=== PATIENT | female | born 1955 | race Caucasian/White ===

== ENCOUNTER 2017-11-19 01:48 | Observation (INO) | payer BC ==
[2017-11-19] MEDS ORDERED: NORMAL SALINE 1000 ML 1,000 ML IV ONE (02:03)
[2017-11-19 02:08] LABS: ABSOLUTE BASOPHILS # (AUTO) 0.1 10^3/uL (0.0-0.2); ABSOLUTE EOSINOPHILS # (AUTO) 0.2 10^3/uL (0.0-0.6); ABSOLUTE LYMPHOCYTES (AUTO) 1.9 10^3/uL (0.5-4.7); ABSOLUTE MONOCYTES (AUTO) 0.6 10^3/uL (0.1-1.4); ABSOLUTE NEUT (AUTO) 4.7 10^3/uL (1.7-8.2); BASOPHILS % (AUTO) 1.4 % (0-2); EOSINOPHILS % (AUTO) 2.5 % (0-6); HEMATOCRIT 33.3 % (36.0-47.0); HEMOGLOBIN 10.8 g/dL (12.0-15.5); LYMPHOCYTES % (AUTO) 25.5 % (13-45); MEAN CORPUSCULAR HGB CONC 32.4 g/dL (32.0-36.0); MEAN CORPUSCULAR VOLUME 77 fl (80-97); MONOCYTES % (AUTO) 8.4 % (3-13); PLATELET COUNT 275 10^3/uL (150-450); RED BLOOD COUNT 4.32 10^6/uL (3.72-5.28); RED CELL DISTRIBUTION WIDTH 15.2 % (11.5-14.0); SEGMENTED NEUTROPHILS % (AUTO) 62.2 % (42-78); TOTAL CELLS COUNTED % (AUTO) 100 %; WHITE BLOOD COUNT 7.5 10^3/uL (4.0-10.5)
[2017-11-19 02:36] LABS: ALANINE AMINOTRANSFERASE 23 U/L (9-52); ALBUMIN 3.5 g/dL (3.5-5.0); ALKALINE PHOSPHATASE 118 U/L (38-126); ANION GAP 8 (5-19); ASPARTATE AMINO TRANSFERASE 38 U/L (14-36); BILIRUBIN,DIRECT 0.1 mg/dL (0.0-0.4); BILIRUBIN,TOTAL 0.8 mg/dL (0.2-1.3); BLOOD UREA NITROGEN 9 mg/dL (7-20); CALCIUM 8.6 mg/dL (8.4-10.2); CARBON DIOXIDE 28 mmol/L (22-30); CHLORIDE 104 mmol/L (98-107); CREATINE KINASE 35 U/L (30-135); GLUCOSE 165 mg/dL (75-110); LIPASE 688.8 U/L (23-300); POTASSIUM 4.4 mmol/L (3.6-5.0); SODIUM 139.6 mmol/L (137-145); TOTAL PROTEIN 6.2 g/dL (6.3-8.2)
--- NOTE | 2017-11-19 02:37 | RADIOLOGY REPORT (SQ) ---
EXAM DESCRIPTION: CT HEAD WITHOUT COMPLETED DATE/TIME: 11/19/2017 2:22 am REASON FOR STUDY: ams COMPARISON: None. TECHNIQUE: Axial images acquired through the brain without intravenous contrast. Images reviewed wi th bone, brain and subdural windows. Images stored on PACS. All CT scanners at this facility use dose modulation, iterative reconstruction, and/or weight based d osing when appropriate to reduce radiation dose to as low as reasonably achievable (ALARA). [facility]: Dose Right [facility]: CareDose [facility]: Dose Right [facility]: Teradose 4D [facility]: Smart EPS RADIATION DOSE: CT Rad equipment meets quality standard of care and radiation dose reduction techniq ues were employed. CTDIvol: 64.6 mGy. DLP: 1163 mGy-cm. mGy. LIMITATIONS: None. FINDINGS: VENTRICLES: Normal size and contour. CEREBRUM: No mass effect. No hemorrhage. No midline shift. Normal garza/white matter differentiatio n. No evidence for acute territorial infarction. CEREBELLUM: No mass effect. No hemorrhage. No alteration of density. No evidence for acute infarct ion. EXTRAAXIAL SPACES: No fluid collections. ORBITS AND GLOBE: Symmetrical contour of the globes. CALVARIUM: No depressed skull fracture. PARANASAL SINUSES: No air-fluid level. SOFT TISSUES: No hematoma. IMPRESSION: No acute intracranial hemorrhage or acute territorial infarct. EVIDENCE OF ACUTE STROKE: NO. COMMENT: Quality ID # [id number]: Final reports with documentation of one or more dose reduction techniques (e.g., Automated exposure control, adjustment of the mA and/or kV according to patient size, use of iterative reconstruction technique) TECHNICAL DOCUMENTATION: JOB ID: [id number] [place]- All Rights Reserved
[2017-11-19 02:45] LABS: CREATINE KINASE MB 0.28 ng/mL (<4.55); TROPONIN I < 0.012 ng/mL
[2017-11-19 02:49] LABS: INTERNATIONAL RATION (INR) 0.94; PARTIAL THROMBOPLASTIN TIME 29.5 SEC (23.5-35.8); PROTHROMBIN TIME 13.2 SEC (11.4-15.4)
--- NOTE | 2017-11-19 02:53 | RADIOLOGY REPORT (SQ) ---
EXAM DESCRIPTION: CHEST SINGLE VIEW COMPLETED DATE/TIME: 11/19/2017 2:13 am REASON FOR STUDY: vomiting, heart rate 30's COMPARISON: None. EXAM PARAMETERS: NUMBER OF VIEWS: One view. TECHNIQUE: Single frontal radiographic view of the chest acquired. RADIATION DOSE: NA LIMITATIONS: None. FINDINGS: LUNGS AND PLEURA: No consolidation, pneumothorax or pleural effusion. MEDIASTINUM AND HILAR STRUCTURES: No masses. Contour normal. HEART AND VASCULAR STRUCTURES: The heart is enlarged. There is no overt vascular congestion. BONES: No acute findings. HARDWARE: None in the chest. IMPRESSION: Cardiomegaly with no vascular congestion. TECHNICAL DOCUMENTATION: JOB ID: [id number] [place]-64 2010 [employer]- All Rights Reserved
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
--- NOTE | 2017-11-19 05:22 | RADIOLOGY REPORT (SQ) ---
EXAM DESCRIPTION: CT ABD/PELVIS WITH IV ONLY COMPLETED DATE/TIME: 11/19/2017 4:59 am REASON FOR STUDY: nausea, vomiting, diarrhea x1 hour prior to arrival. History of gastric bypass an d tubal ligation. Cholecystectomy. COMPARISON: None. TECHNIQUE: CT scan of the abdomen and pelvis performed using helical scanning technique with dynamic intravenous contrast injection. No oral contrast. Images reviewed with lung, soft tissue, and bone windows. Reconstructed coronal and sagittal MPR images reviewed. Delayed images for evaluation of the urinary system also acquired. All images stored on PACS. All CT scanners at this facility use dose modulation, iterative reconstruction, and/or weight based d osing when appropriate to reduce radiation dose to as low as reasonably achievable (ALARA). [facility]: Dose Right [facility]: CareDose [facility]: Dose Right [facility]: Teradose 4D [facility]: [employer] [facility] CONTRAST TYPE AND DOSE: contrast/concentration: Isovue 370.00 mg/ml; Total Contrast Delivered: 90.0 ml; Total Saline Delivered: 70.0 ml RENAL FUNCTION: Creatinine 0.67 RADIATION DOSE: CT Rad equipment meets quality standard of care and radiation dose reduction techniq ues were employed. CTDIvol: 12.5 - 17.0 mGy. DLP: 1598 mGy-cm.. LIMITATIONS: None. FINDINGS: LOWER CHEST: Mild bibasilar atelectasis. No pleural effusion. LIVER: Normal size. No masses. No dilated ducts. SPLEEN: Normal size. PANCREAS: No significant calcifications. No adjacent inflammation or peripancreatic fluid collections . Pancreatic duct not dilated. GALLBLADDER: Surgically absent. ADRENAL GLANDS: No significant masses or asymmetry. RIGHT KIDNEY AND URETER: No solid masses. No significant calcifications. No hydronephrosis or hyd roureter. LEFT KIDNEY AND URETER: No solid masses. No significant calcifications. No hydronephrosis or hydr oureter. AORTA AND VESSELS: No abdominal aortic aneurysm. RETROPERITONEUM: No retroperitoneal adenopathy, hemorrhage or masses. BOWEL AND PERITONEAL CAVITY: Postsurgical changes are seen at the stomach and small bowel loops. No dilated bowel loops. No free fluid or free air. There is mild increased haziness at the mesenteric root. No pathologically enlarged lymph nodes are identified. APPENDIX: Normal. PELVIS: The urinary bladder is distended. The uterus has a lobulated contour, suggestive fibroid mary nge. No free fluid. ABDOMINAL WALL: Very small fat containing umbilical hernia. BONES: Degenerative changes in the spine. IMPRESSION: 1. Mild increased haziness at the mesenteric root, may be seen with mesenteric pannicul itis. 2. Fibroid uterus. TECHNICAL DOCUMENTATION: JOB ID: [id number] [place]- Quality ID # [id number]: Final reports with documentation of one or more dose reduction techniques (e.g., Au tomated exposure control, adjustment of the mA and/or kV according to patient size, use of iterative reconstruction technique) 2010 [employer]- All Rights Reserved
[2017-11-19] MEDS ORDERED: MAG HYDROX/AL HYDROX/SIMETH SUSP 30 ML UDCUP PO PRN (06:46)
[2017-11-19] MEDS ORDERED: ACETAMINOPHEN 325 MG TABLET PO PRN (06:46)
[2017-11-19] MEDS ORDERED: NORMAL SALINE 1000 ML 1,000 ML IV PRN (06:49)
--- NOTE | 2017-11-19 06:58 | PDOC H&P ---
History of Present Illness Admission Date/PCP: 11/19/17 06:16 ARTIS WEAVER PA-C Patient complains of: Nausea and syncope History of Present Illness: CATALINO STILL is a 62 year old female with a past medical history of depression, diabetes, hypertension, dyslipidemia status post gastric bypass 2 years ago. Patient presents with sudden onset of abdominal pain and nausea without shortness of breath palpitations or chest pain. Suspecting her blood sugar was low she drank orange juice followed by a syncopal episode while standing. She was assisted to the floor by her without sustaining injury. She had 2 further episodes lasting approximately a minute without postictal confusion, limb shaking or incontinence. EMS reports several episodes of retching during which a brief episode of bradycardia in the 30s. Patient denies previous episode, new medications and otherwise feels well and at baseline. In the emergency room her workup is unremarkable with exception to a mild microcytic anemia, mild elevated lipase and a CT abdomen and pelvis showing possible mesenteric panniculitis. She is referred to the hospitalist for evaluation. Past Medical History Cardiac Medical History: Reports: Hyperlipidema, Hypertension Endocrine Medical History: Reports: Diabetes Mellitus Type 2 - NIDDM, Obesity Psychiatric Medical History: Reports: Depression Past Surgical History Past Surgical History: Reports: Cholecystectomy, Gastric Bypass Surgery, Herniorrhaphy, Tubal Ligation Social History Information Source: Patient, Emergency Med Personnel Lives with: Spouse/Significant other Smoking Status: Unknown if Ever Smoked Frequency of Alcohol Use: None Hx Recreational Drug Use: No Drugs: None - Advance Directive Resuscitation Status: Full Code Family History Family History: CAD, CVA, DM, Hyperlipidemia, Hypertension, Malignancy, Other - Non-Hodgkin's lymphoma. denies: Arthritis, Thyroid Disfunction Parental Family History Reviewed: Yes Children Family History Reviewed: Yes Sibling(s) Family History Reviewed.: Yes Medication/Allergy Home Medications: Oxycodone HCl/Acetaminophen [Percocet 5-325 mg Tablet] 1 tab PO Q6HP PRN #25 tablet 10/31/15 Review of Systems Constitutional: PRESENT: fatigue. ABSENT: chills, fever(s), headache(s), weight gain, weight loss Eyes: ABSENT: visual disturbances Ears: ABSENT: hearing changes Cardiovascular: ABSENT: chest pain, dyspnea on exertion, edema, orthropnea, palpitations Respiratory: ABSENT: cough, hemoptysis Gastrointestinal: ABSENT: abdominal pain, constipation, diarrhea, hematemesis, hematochezia, nausea, vomiting Genitourinary: ABSENT: dysuria, hematuria Musculoskeletal: ABSENT: joint swelling Integumentary: ABSENT: rash, wounds Neurological: ABSENT: abnormal gait, abnormal speech, confusion, dizziness, focal weakness, syncope Psychiatric: ABSENT: anxiety, depression, homidical ideation, suicidal ideation Endocrine: ABSENT: cold intolerance, heat intolerance, polydipsia, polyuria Hematologic/Lymphatic: ABSENT: easy bleeding, easy bruising Physical Exam Vital Signs: Temp Pulse Resp BP Pulse Ox 97.5 F 19 126/69 H 94 11/19/17 02:01 11/19/17 06:01 11/19/17 06:01 11/19/17 06:01 General appearance: PRESENT: no acute distress, well-developed, well-nourished Head exam: PRESENT: atraumatic, normocephalic Eye exam: PRESENT: conjunctiva pink, EOMI, PERRLA. ABSENT: scleral icterus Ear exam: PRESENT: normal external ear exam Mouth exam: PRESENT: moist, tongue midline Neck exam: ABSENT: carotid bruit, JVD, lymphadenopathy, thyromegaly Respiratory exam: PRESENT: clear to auscultation nate. ABSENT: rales, rhonchi, wheezes Cardiovascular exam: PRESENT: RRR. ABSENT: diastolic murmur, rubs, systolic murmur Pulses: PRESENT: normal dorsalis pedis pul Vascular exam: PRESENT: normal capillary refill GI/Abdominal exam: PRESENT: normal bowel sounds, soft. ABSENT: distended, guarding, mass, organolmegaly, rebound, tenderness Rectal exam: PRESENT: deferred Extremities exam: PRESENT: full ROM. ABSENT: calf tenderness, clubbing, pedal edema Neurological exam: PRESENT: alert, awake, oriented to person, oriented to place , oriented to time, oriented to situation, CN II-XII grossly intact. ABSENT: motor sensory deficit Psychiatric exam: PRESENT: appropriate affect, normal mood. ABSENT: homicidal ideation, suicidal ideation Skin exam: PRESENT: dry, intact, warm. ABSENT: cyanosis, rash Results Impressions: Chest X-Ray 11/19/17 01:59 IMPRESSION: Cardiomegaly with no vascular congestion. Head CT 11/19/17 02:15 IMPRESSION: No acute intracranial hemorrhage or acute territorial infarct. EVIDENCE OF ACUTE STROKE: NO. Abdomen/Pelvis CT 11/19/17 04:30 IMPRESSION: 1. Mild increased haziness at the mesenteric root, may be seen with mesenteric panniculitis. 2. Fibroid uterus. Assessment & Plan - Diagnosis (1) Syncopal episodes Qualifiers: Syncope type: unspecified Qualified Code(s): R55 - Syncope and collapse Is this a current diagnosis for this admission?: Yes Plan: Unclear cause suspect hypotension. Telemetry monitoring hold Lopressor. Follow -up orthostatic blood pressure evaluation and consider outpatient cardiac monitoring (2) Diabetes Is this a current diagnosis for this admission?: Yes Plan: Episode unlikely secondary to hypoglycemia, follow-up A1c (3) Orthostatic hypotension Is this a current diagnosis for this admission?: Yes Plan: Follow-up orthostatic blood pressures (4) Nausea Is this a current diagnosis for this admission?: Yes Plan: Symptomatic management. - Time Time Spent: 30 to 50 Minutes - Inpatient Certification Medical Necessity: Need Close Monitoring Due to Risk of Patient Decompensation
[2017-11-19 07:04] LABS: ABSOLUTE RETICS # 0.066 10^6/uL (0.028-0.122); RETICULOCYTE COUNT (AUTO) 1.51 % (0.66-2.85)
[2017-11-19 08:54] LABS: IRON(TIBC) 37.5 ug/dL (37-170); MAGNESIUM 1.8 mg/dL (1.6-2.3)
--- NOTE | 2017-11-19 08:54 | EKG REPORT ---
SEVERITY:- BORDERLINE ECG - SINUS RHYTHM BORDERLINE T ABNORMALITIES, DIFFUSE LEADS : Confirmed by: Martin Simeon MD 19-Nov-2017 08:53:18
[2017-11-19 09:11] LABS: CREATINE KINASE MB 1.79 ng/mL (<4.55)
[2017-11-19 09:13] LABS: TROPONIN I < 0.012 ng/mL
[2017-11-19 09:49] LABS: APPEARANCE,URINE CLEAR; BILIRUBIN,URINE NEGATIVE (NEGATIVE); COLOR,URINE YELLOW; GLUCOSE, URINE 50 mg/dL (NEGATIVE); KETONES,URINE NEGATIVE (NEGATIVE); LEUKOCYTE ESTERASE,URINE NEGATIVE (NEGATIVE); NITRITE,URINE NEGATIVE (NEGATIVE); PROTEIN,URINE NEGATIVE (NEGATIVE); URINE SPECIFIC GRAVITY 1.034
[2017-11-19 10:05] LABS: URINE AMPHETAMINES SCREEN NEGATIVE; URINE BARBITURATES SCREEN NEGATIVE; URINE BENZODIAZEPINES SCREEN NEGATIVE; URINE COCAINE SCREEN NEGATIVE; URINE MARIJUANA (THC) SCREEN NEGATIVE; URINE METHADONE SCREEN NEGATIVE; URINE PHENCYCLIDINE SCREEN NEGATIVE
[2017-11-19] MEDS: DOCUSATE SODIUM 100 MG CAPSULE PO SCH (10:36)
--- NOTE | 2017-11-19 15:38 | Progress Note ---
Provider Note Provider Note: Patient admitted this am. Chart and Labs reviewed and discussed with patient and family. They are satisfied with my explanation
[2017-11-19 15:57] LABS: TROPONIN I < 0.012 ng/mL
[2017-11-19] MEDS: HEPARIN SOD (PORCINE) 5,000 UNIT/ML 1 ML SYRINGE SUBCUT SCH ×2 (16:35→22:11)
[2017-11-19 21:20] LABS: CREATINE KINASE MB 1.37 ng/mL (<4.55)
[2017-11-19 21:24] LABS: TROPONIN I < 0.012 ng/mL
[2017-11-20 04:58] LABS: ABSOLUTE EOSINOPHILS # (AUTO) 0.2 10^3/uL (0.0-0.6); ABSOLUTE LYMPHOCYTES (AUTO) 2.7 10^3/uL (0.5-4.7); ABSOLUTE MONOCYTES (AUTO) 0.5 10^3/uL (0.1-1.4); ABSOLUTE NEUT (AUTO) 3.4 10^3/uL (1.7-8.2); BASOPHILS % (AUTO) 0.7 % (0-2); EOSINOPHILS % (AUTO) 2.4 % (0-6); HEMOGLOBIN 10.4 g/dL (12.0-15.5); LYMPHOCYTES % (AUTO) 39.7 % (13-45); MEAN CORPUSCULAR HEMOGLOBIN 25.1 pg (27.0-33.4); MEAN CORPUSCULAR HGB CONC 32.4 g/dL (32.0-36.0); MEAN CORPUSCULAR VOLUME 78 fl (80-97); MONOCYTES % (AUTO) 7.5 % (3-13); PLATELET COUNT 236 10^3/uL (150-450); RED BLOOD COUNT 4.13 10^6/uL (3.72-5.28); RED CELL DISTRIBUTION WIDTH 15.3 % (11.5-14.0); SEGMENTED NEUTROPHILS % (AUTO) 49.7 % (42-78); TOTAL CELLS COUNTED % (AUTO) 100 %; WHITE BLOOD COUNT 6.7 10^3/uL (4.0-10.5)
[2017-11-20 05:26] LABS: ALANINE AMINOTRANSFERASE 31 U/L (9-52); ALBUMIN 3.3 g/dL (3.5-5.0); ALKALINE PHOSPHATASE 119 U/L (38-126); ANION GAP 8 (5-19); ASPARTATE AMINO TRANSFERASE 27 U/L (14-36); BILIRUBIN,DIRECT 0.1 mg/dL (0.0-0.4); BILIRUBIN,TOTAL 1.4 mg/dL (0.2-1.3); BLOOD UREA NITROGEN 4 mg/dL (7-20); CARBON DIOXIDE 30 mmol/L (22-30); CHLORIDE 104 mmol/L (98-107); GLUCOSE 152 mg/dL (75-110); POTASSIUM 4.4 mmol/L (3.6-5.0); SODIUM 142.3 mmol/L (137-145); TOTAL PROTEIN 5.9 g/dL (6.3-8.2)
[2017-11-20] MEDS: HEPARIN SOD (PORCINE) 5,000 UNIT/ML 1 ML SYRINGE SUBCUT SCH ×2 (07:55→13:16)
[2017-11-20] MEDS: DOCUSATE SODIUM 100 MG CAPSULE PO SCH (09:27)
[2017-11-20 12:11] VITALS: BP 170/76
[2017-11-20] MEDS ORDERED: CARVEDILOL 6.25 MG TABLET PO ONE (13:00)
--- NOTE | 2017-11-20 18:01 | PDOC DISCHARGE SUMMARY ---
General - Admit/Disc Date/PCP Admission Date/Primary Care Provider: 11/19/17 06:16 ARTIS WEAVER PA-C Discharge Date: 11/20/17 - Discharge Diagnosis (1) Anemia Is this a current diagnosis for this admission?: Yes (2) Diabetes Is this a current diagnosis for this admission?: Yes (3) Generalized muscle weakness Is this a current diagnosis for this admission?: Yes (4) Orthostatic hypotension Is this a current diagnosis for this admission?: Yes (5) Syncopal episodes Is this a current diagnosis for this admission?: Yes - Additional Information Resuscitation Status: Full Code Discharge Diet: As Tolerated, Cardiac, Diabetic Discharge Activity: Activity As Tolerated Home Medications: Aspirin [Aspirin 81 mg Chewable Tablet] 81 mg PO DAILY 11/19/17 Carvedilol 6.25 mg PO Q12 11/19/17 Escitalopram Oxalate [Lexapro] 20 mg PO DAILY 11/19/17 Glimepiride 1 mg PO DAILY 11/19/17 Metformin HCl [Metformin HCl ER] 1,500 mg PO WSUPPER 11/19/17 Simvastatin 40 mg PO QHS 11/19/17 History of Present Illness History of Present Illness: CATALINO STILL is a 62 year old female admitted with syncope, nausea and vomiting Hospital Course Hospital Course: Patient was admitted with unexplained syncopal episode as well as bradycardia and nausea and vomiting. The etiology of this is not really clear and it is possible that patient was hypoglycemic although the first check of her glucose was close to 200 after drinking some orange juice. She was monitored in hospital overnight with no further episodes of syncope and she remained hemodynamically stable. She was found to have microcytic anemia but no evidence of any acute blood loss. She has been hemodynamically stable with no further interventions been planned at this time she is being discharged home for outpatient follow-up. Physical Exam Vital Signs: Temp Pulse Resp BP Pulse Ox 98.8 F 57 L 16 170/76 H 98 11/20/17 12:59 11/20/17 12:59 11/20/17 12:59 11/20/17 12:59 11/20/17 12:59 Intake & Output 11/19/17 11/20/17 11/21/17 06:59 06:59 06:59 Intake Total 1195 480 Output Total 700 Balance 495 480 Weight 82.5 kg General appearance: PRESENT: no acute distress, well-developed, well-nourished Head exam: PRESENT: atraumatic, normocephalic Eye exam: PRESENT: conjunctiva pink, EOMI, PERRLA. ABSENT: scleral icterus Ear exam: PRESENT: normal external ear exam Mouth exam: PRESENT: moist, tongue midline Neck exam: ABSENT: carotid bruit, JVD, lymphadenopathy, thyromegaly Respiratory exam: PRESENT: clear to auscultation nate. ABSENT: rales, rhonchi, wheezes Cardiovascular exam: PRESENT: RRR. ABSENT: diastolic murmur, rubs, systolic murmur Vascular exam: PRESENT: normal capillary refill GI/Abdominal exam: PRESENT: normal bowel sounds, soft. ABSENT: distended, guarding, mass, organolmegaly, rebound, tenderness Rectal exam: PRESENT: deferred Extremities exam: PRESENT: full ROM. ABSENT: calf tenderness, clubbing, pedal edema Neurological exam: PRESENT: alert, awake, oriented to person, oriented to place , oriented to time, oriented to situation, CN II-XII grossly intact. ABSENT: motor sensory deficit Psychiatric exam: PRESENT: appropriate affect, normal mood. ABSENT: homicidal ideation, suicidal ideation Skin exam: PRESENT: dry, intact, warm. ABSENT: cyanosis, rash Results Laboratory Results: 11/20/17 04:02 11/20/17 04:02 11/20/17 11/20/17 04:02 04:02 WBC 6.7 RBC 4.13 Hgb 10.4 L Hct 32.0 L MCV 78 L MCH 25.1 L MCHC 32.4 RDW 15.3 H Plt Count 236 Seg Neutrophils % 49.7 Lymphocytes % 39.7 Monocytes % 7.5 Eosinophils % 2.4 Basophils % 0.7 Absolute Neutrophils 3.4 Absolute Lymphocytes 2.7 Absolute Monocytes 0.5 Absolute Eosinophils 0.2 Absolute Basophils 0.0 Sodium 142.3 Potassium 4.4 Chloride 104 Carbon Dioxide 30 Anion Gap 8 BUN 4 L Creatinine 0.66 Est GFR ( Amer) > 60 Est GFR (Non-Af Amer) > 60 Glucose 152 H Calcium 9.0 Total Bilirubin 1.4 H AST 27 ALT 31 Alkaline Phosphatase 119 Total Protein 5.9 L Albumin 3.3 L 11/19/17 11/19/17 11/19/17 08:29 08:29 14:41 Creatine Kinase 114 133 CK-MB (CK-2) 1.79 Troponin I < 0.012 11/19/17 11/19/17 11/19/17 14:41 20:40 20:40 Creatine Kinase 137 H CK-MB (CK-2) 1.70 1.37 Troponin I < 0.012 < 0.012 Impressions: Chest X-Ray 11/19/17 01:59 IMPRESSION: Cardiomegaly with no vascular congestion. Head CT 11/19/17 02:15 IMPRESSION: No acute intracranial hemorrhage or acute territorial infarct. EVIDENCE OF ACUTE STROKE: NO. Abdomen/Pelvis CT 11/19/17 04:30 IMPRESSION: 1. Mild increased haziness at the mesenteric root, may be seen with mesenteric panniculitis. 2. Fibroid uterus. Qualifiers PATEINT BEING DISCHARGED WITH ANY OF THE FOLLOWING DIAGNOSIS?: No Plan Discharge Plan: Follow-up with primary care physician is advised and further evaluation of anemia is suggested. Time Spent: Less than 30 Minutes
== END 2017-11-20 13:33 | disposition home or self-care (01) ==
LOC: ER 01:48 → EH 06:16 → 5 12:35
PROVIDERS: ADMIT Internal Medicine; ATTEND Internal Medicine
DX: R55 Syncope and collapse (principal); D50.9 Iron deficiency anemia, unspecified; E11.9 Type 2 diabetes mellitus without complications; M62.81 Muscle weakness (generalized); I95.1 Orthostatic hypotension; R10.9 Unspecified abdominal pain; R11.2 Nausea with vomiting, unspecified; R19.7 Diarrhea, unspecified; Z79.899 Other long term (current) drug therapy; Z79.82 Long term (current) use of aspirin; Z79.84 Long term (current) use of oral hypoglycemic drugs; Z98.84 Bariatric surgery status; Z90.49 Acquired absence of other specified parts of digestive tract; Z98.51 Tubal ligation status; Z82.49 Family history of ischemic heart disease and other diseases of the circulatory system; Z80.7 Family history of other malignant neoplasms of lymphoid, hematopoietic and related tissues; Z98.890 Other specified postprocedural states
CPT/HCPCS: 93005; 99285; 96360; 96361; 36415 ×2; 82553; 82607; 82550; 82728; 82746; 83540; 83550; 83690; 83735; 84443; 85025 ×2; 85652; 85610; 85730; 85045; 80053 ×2; 81001; 84484; 80307; 83036; 71045; 70450; 74177; 93010; G0378 ×3; J1644 ×2; J7030

== ENCOUNTER 2018-08-12 22:55 | Observation (INO) | payer BC, MEDICARE ==
--- NOTE | 2018-08-12 23:19 | ER Document Report ---
ED General - General Stated Complaint: NAUSEA/VOMITING Time Seen by Provider: 08/12/18 23:00 Notes: Patient is a 63-year-old female presents via ambulance. Complaint is initially of diarrhea and high blood sugar. On exam her speech is slightly slurred. She is really unsure of exactly when this started. She said probably sometime tonight. She denies any weakness or numbness anywhere else other than just generalized weakness. She denies recent fevers. She said some nausea. No blood in her stool. She mentions that she start taking some medications today that she had taken while that she is supposed to take every day. When these metformin. She cannot really tell me what the other medications are. She does have back medicines but metformin is not in that bag. She also has multiple antibiotics in this bag which are from several months ago. On exam patient does appear to have bit her tongue. I asked her if she has a history of seizures and possibly had a seizure tonight. She denies previous history of seizures. She is unsure if she may have had a seizure tonight. TRAVEL OUTSIDE OF THE [place] IN LAST 30 DAYS: No - Related Data Allergies/Adverse Reactions: No Known Allergies Allergy (Verified 08/13/18 03:17) Past Medical History - Social History Smoking Status: Unknown if Ever Smoked Frequency of alcohol use: None Drug Abuse: None Family History: CAD, CVA, DM, Hyperlipidemia, Hypertension, Malignancy, Other - Non-Hodgkin's lymphoma. denies: Arthritis, Thyroid Disfunction - Past Medical History Cardiac Medical History: Reports: Hx Hypercholesterolemia, Hx Hypertension Endocrine Medical History: Reports: Hx Diabetes Mellitus Type 2 - NIDDM Renal/ Medical History: Denies: Hx Peritoneal Dialysis Psychiatric Medical History: Reports: Hx Anxiety, Hx Depression Past Surgical History: Reports: Hx Cholecystectomy, Hx Gastric Bypass Surgery, Hx Herniorrhaphy, Hx Tubal Ligation - Immunizations Immunizations up to date: Yes Hx Diphtheria, Pertussis, Tetanus Vaccination: Yes Review of Systems - Review of Systems Notes: My Normal Review Basic REVIEW OF SYSTEMS: CONSTITUTIONAL : Denies fever, chills, or sweats. Denies recent illness. EENT: Denies eye, ear, throat, or mouth pain or symptoms. Denies nasal or sinus congestion. CARDIOVASCULAR: Denies chest pain. RESPIRATORY: Denies cough, cold, or chest congestion. Denies shortness of breath, difficulty breathing, or wheezing. GASTROINTESTINAL: Denies abdominal pain. Nausea. Diarrhea. GENITOURINARY: Denies difficulty urinating, painful urination, burning, frequency, or blood in urine. MUSCULOSKELETAL: Denies neck or back pain or joint pain or swelling. SKIN: Denies rash or skin lesions. HEMATOLOGIC : Denies easy bruising or bleeding. LYMPHATIC: Denies swollen, enlarged glands. NEUROLOGICAL: Possible loss of consciousness. Patient denies any focal weakness or numbness. ALL OTHER SYSTEMS REVIEWED AND NEGATIVE. Physical Exam - Vital signs Vitals: Temp Pulse Resp BP Pulse Ox 97.4 F 70 15 192/99 H 98 08/12/18 22:55 08/12/18 22:55 08/12/18 22:55 08/12/18 22:55 08/12/18 22:55 - Notes Notes: General Appearance: Well nourished, patient is little bit somnolent. Speech is slightly slurred. Vitals: reviewed, See vital signs table. Head: no swelling or tenderness to the head Eyes: PERRL, EOMI, Conjuctiva clear Mouth: Small area of tongue biting. Throat: No tonsillar inflammation, No airway obstruction, No lymphadenopathy Neck: Supple, no neck tenderness Lungs: No wheezing, No rales, No rhonci, No accessory muscle use, good air exchange bilaterally. Heart: Normal rate, Regular rythm, No murmur, no rub Abdomen: Normal BS, soft, No rigidity, No abdominal tenderness, No guarding, no rebound, no abdominal masses, no organomegaly Extremities: strength 5/5 in all extremities, good pulses in all extremities, no swelling or tenderness in the extremities, no edema. Skin: warm, dry, appropriate color, no rash Neuro: She is little bit somnolent. Speech is slightly slurred. Cranial nerves II through XII are otherwise intact. Patient has good strength in all 4 extremities. No evidence of any further focal neurologic deficits other than the slightly slurred speech. Course - Re-evaluation Re-evalutation: 08/12/18 23:17 Patient has slightly slurred speech but she does not have any other signs of stroke. Cranial nerves are intact. She does not have any focal deficits. She is just somewhat globally weak appearing and actually a little bit somnolent appearing and her presentation is consistent with what I would typically see with someone who is on suppressing medication such as sleeping medications or benzos. I asked her about if she takes there is medications that she can says that she does not think she takes these but is not 100% sure. She does not have any of these medicines in her medicine bag. I will do a urine drug screen. We will continue to closely monitor and workup for other potential causes. 08/13/18 03:29 Patient is a much more awake and alert. She answers all questions appropriately. She is unsure exactly what happened. She said that she take her normal medications tonight. Says for some she is taking well. She denies any of these being pain medicines are sedating medicines. She says it was her blood pressure, diabetes, and cholesterol medications. Said later in the night she started feeling unwell and then passed out. Her caught her. He said she was on well-appearing. In the ambulance patient did have an episode where she became asystolic for several seconds. Able to traverse the this seem to be more related to the patient becoming nauseous and was probably a vagal episode. Patient says she does have a history of previous vagal episodes in the past. My concerns patient had prolonged symptoms of slurred speech after she arrived. That is since clear. She had no other signs of stroke. Also she had tongue biting. I am unclear if this could be related to possible seizure and the patient was postictal or the tongue biting was related to jaw clenching during a syncopal episode. At this time I have spoken with the hospitalist who agrees to admit the patient for observation. Dictation of this chart was performed using voice recognition software; therefore, there may be some unintended grammatical errors. - Vital Signs Vital signs: Temp Pulse Resp BP Pulse Ox 97.4 F 70 15 192/99 H 98 08/12/18 22:55 08/12/18 22:55 08/12/18 22:55 08/12/18 22:55 08/12/18 22:55 - Laboratory Result Diagrams: 08/12/18 23:23 08/12/18 23:23 Laboratory results interpreted by me: 08/12/18 08/12/18 08/13/18 23:23 23:23 00:21 Hgb 11.8 L Hct 32.1 L MCHC 36.9 H RDW 16.7 H Glucose 144 H Alkaline Phosphatase 152 H Urine Glucose (UA) >=500 H Urine Ascorbic Acid 40 H - EKG Interpretation by Me Additional EKG results interpreted by me: 08/12/18 23:43 EKG is reviewed and interpreted by me. EKG shows sinus rhythm with a rate of [address] segment elevation or depression. No ischemic T wave inversions. [place] interval, QRS duration, QTc intervals are within normal range. Old EKG for comparison is from November 19, 2017. Discharge - Discharge Clinical Impression: Slurred speech Syncope Qualifiers: Syncope type: unspecified Qualified Code(s): R55 - Syncope and collapse Condition: Stable Disposition: ADMITTED OBSERVATION Admitting Provider: Hospitalist Unit Admitted: Telemetry
[2018-08-12 23:43] LABS: ABSOLUTE BASOPHILS # (AUTO) 0.1 10^3/uL (0.0-0.2); ABSOLUTE EOSINOPHILS # (AUTO) 0.2 10^3/uL (0.0-0.6); ABSOLUTE LYMPHOCYTES (AUTO) 1.6 10^3/uL (0.5-4.7); ABSOLUTE MONOCYTES (AUTO) 0.5 10^3/uL (0.1-1.4); ABSOLUTE NEUT (AUTO) 4.6 10^3/uL (1.7-8.2); BASOPHILS % (AUTO) 1.2 % (0-2); EOSINOPHILS % (AUTO) 2.8 % (0-6); HEMATOCRIT 32.1 % (36.0-47.0); HEMOGLOBIN 11.8 g/dL (12.0-15.5); LYMPHOCYTES % (AUTO) 22.6 % (13-45); MEAN CORPUSCULAR HEMOGLOBIN 31.7 pg (27.0-33.4); MEAN CORPUSCULAR HGB CONC 36.9 g/dL (32.0-36.0); MEAN CORPUSCULAR VOLUME 86 fl (80-97); MONOCYTES % (AUTO) 7.3 % (3-13); PLATELET COUNT 330 10^3/uL (150-450); RED BLOOD COUNT 3.73 10^6/uL (3.72-5.28); RED CELL DISTRIBUTION WIDTH 16.7 % (11.5-14.0); SEGMENTED NEUTROPHILS % (AUTO) 66.1 % (42-78); TOTAL CELLS COUNTED % (AUTO) 100 %
[2018-08-12 23:46] LABS: ALANINE AMINOTRANSFERASE 11 U/L (9-52); ALBUMIN 3.9 g/dL (3.5-5.0); ALKALINE PHOSPHATASE 152 U/L (38-126); ANION GAP 12 (5-19); ASPARTATE AMINO TRANSFERASE 36 U/L (14-36); BILIRUBIN,DIRECT 0.2 mg/dL (0.0-0.4); BILIRUBIN,TOTAL 1.2 mg/dL (0.2-1.3); BLOOD UREA NITROGEN 8 mg/dL (7-20); CARBON DIOXIDE 26 mmol/L (22-30); CHLORIDE 105 mmol/L (98-107); GLUCOSE 144 mg/dL (75-110); POTASSIUM 4.1 mmol/L (3.6-5.0); SODIUM 142.6 mmol/L (137-145); TOTAL PROTEIN 7.5 g/dL (6.3-8.2)
--- NOTE | 2018-08-13 00:03 | RADIOLOGY REPORT (SQ) ---
XR CHEST 1 VIEW HISTORY: Altered mental status. COMPARISON: None. FINDINGS: Query mild cardiomegaly. Lungs are clear. No pleural effusion or pneumothorax is seen. No acute osseous findings. IMPRESSION: No acute cardiopulmonary abnormality.
--- NOTE | 2018-08-13 00:08 | RADIOLOGY REPORT (SQ) ---
CT HEAD WITHOUT IV CONTRAST HISTORY: Altered mental status. COMPARISON: None. TECHNIQUE: CT scan of the brain without contrast. This exam was performed according to our departmental dose-optimization program, which includes automated exposure control, adjustment of the mA and/or kV according to patient size and/or use of iterative reconstruction technique. FINDINGS: The ventricles, cisterns, and sulci are age-appropriate. No acute infarction, intracranial hemorrhage, midline shift, or extra-axial fluid collection is identified. Mucosal thickening of the right sphenoid sinus. Sequela of bilateral chronic mastoiditis. Calvarium is intact. IMPRESSION: No acute intracranial abnormality.
[2018-08-13 00:39] LABS: AMORPHOUS SEDIMENT,URINE TRACE /HPF; APPEARANCE,URINE SLIGHTLY-CLOUDY; BILIRUBIN,URINE NEGATIVE (NEGATIVE); COLOR,URINE YELLOW; GLUCOSE, URINE >=500 mg/dL (NEGATIVE); KETONES,URINE NEGATIVE (NEGATIVE); LEUKOCYTE ESTERASE,URINE NEGATIVE (NEGATIVE); NITRITE,URINE NEGATIVE (NEGATIVE); PROTEIN,URINE NEGATIVE (NEGATIVE); URINE SPECIFIC GRAVITY 1.021; UROBILINOGEN,URINE NEGATIVE mg/dL (<2.0)
[2018-08-13 00:53] LABS: URINE AMPHETAMINES SCREEN NEGATIVE; URINE BARBITURATES SCREEN NEGATIVE; URINE BENZODIAZEPINES SCREEN NEGATIVE; URINE COCAINE SCREEN NEGATIVE; URINE MARIJUANA (THC) SCREEN NEGATIVE; URINE METHADONE SCREEN NEGATIVE; URINE PHENCYCLIDINE SCREEN NEGATIVE
[2018-08-13] MEDS ORDERED: ACETAMINOPHEN 325 MG TABLET PO PRN (02:31)
[2018-08-13] MEDS ORDERED: IPRATROPIUM/ALBUTEROL 0.5-2.5 MG/3 ML AMPUL NEB PRN (02:31)
--- NOTE | 2018-08-13 06:11 | PDOC H&P ---
History of Present Illness Admission Date/PCP: 08/13/18 02:31 Patient complains of: Passing out History of Present Illness: CATALINO STILL is a 63 year old female with a past medical history of depression, dyslipidemia, gastric bypass 2 years ago, hypertension, bradycardia , diabetes and recent pneumonia on Levaquin. She presents via ambulance for complaints uncontrolled hyperglycemia and fainting. EMS reports a episode of bradycardia while vomiting gastric content. In the emergency room she is found to have opiate positive urine drug screen, bradycardia in the 50s, slurred speech and a ady sez faire affect denying opiate use. Her at bedside complains of excessive medications not brought to the emergency room for reconciliation. She receives supportive care and referred to the hospitalist for admission. She admits previous episode 8 months ago and was instructed to discontinue Coreg. She is unable to recall if currently taking Coreg. Past Medical History Cardiac Medical History: Reports: Hyperlipidema, Hypertension Endocrine Medical History: Reports: Diabetes Mellitus Type 2 - NIDDM GI Medical History: Reports: Gastroesophageal Reflux Disease Psychiatric Medical History: Reports: Depression Past Surgical History Past Surgical History: Reports: Cholecystectomy, Gastric Bypass Surgery, Herniorrhaphy, Tubal Ligation Social History Information Source: Patient Lives with: Spouse/Significant other Smoking Status: Never Smoker Frequency of Alcohol Use: None Hx Recreational Drug Use: No Drugs: None Hx Prescription Drug Abuse: No - Advance Directive Resuscitation Status: Full Code Family History Family History: CAD, CVA, DM, Hyperlipidemia, Hypertension, Malignancy, Other - Non-Hodgkin's lymphoma. denies: Arthritis, Thyroid Disfunction Parental Family History Reviewed: Yes Children Family History Reviewed: Yes Sibling(s) Family History Reviewed.: Yes Medication/Allergy Home Medications: Cholecalciferol (Vitamin D3) [Vitamin D] 2,000 unit PO DAILY 08/13/18 Docusate Sodium [Colace] 200 mg PO DAILY 08/13/18 Fluticasone Propionate [Flonase Nasal Nickerson 50 Mcg/Nickerson 16 gm] 1 spray NASL Q12 PRN 08/13/18 Glipizide 5 mg PO DAILY 08/13/18 Iron Bg,Ps/Vitc/B12/FA/Calcium [Nav Forte Capsule] 1 each PO DAILY 08/13/18 Levofloxacin 500 mg PO DAILY 08/13/18 Metformin HCl 500 mg PO BID 08/13/18 Allergies/Adverse Reactions: No Known Allergies Allergy (Verified 08/13/18 03:17) Review of Systems Constitutional: ABSENT: chills, fever(s), headache(s), weight gain, weight loss Eyes: ABSENT: visual disturbances Ears: ABSENT: hearing changes Cardiovascular: ABSENT: chest pain, dyspnea on exertion, edema, orthropnea, palpitations Respiratory: ABSENT: cough, hemoptysis Gastrointestinal: ABSENT: abdominal pain, constipation, diarrhea, hematemesis, hematochezia, nausea, vomiting Genitourinary: ABSENT: dysuria, hematuria Musculoskeletal: ABSENT: joint swelling Integumentary: ABSENT: rash, wounds Neurological: ABSENT: abnormal gait, abnormal speech, confusion, dizziness, focal weakness, syncope Psychiatric: ABSENT: anxiety, depression, homidical ideation, suicidal ideation Endocrine: ABSENT: cold intolerance, heat intolerance, polydipsia, polyuria Hematologic/Lymphatic: ABSENT: easy bleeding, easy bruising Physical Exam Vital Signs: Temp Pulse Resp BP Pulse Ox 97.4 F 55 L 14 148/88 H 94 08/12/18 22:55 08/13/18 04:37 08/13/18 03:31 08/13/18 03:31 08/13/18 03:31 General appearance: PRESENT: no acute distress, well-developed, well-nourished Head exam: PRESENT: atraumatic, normocephalic Eye exam: PRESENT: conjunctiva pink, EOMI, PERRLA. ABSENT: scleral icterus Ear exam: PRESENT: normal external ear exam Mouth exam: PRESENT: moist, tongue midline Neck exam: ABSENT: carotid bruit, JVD, lymphadenopathy, thyromegaly Respiratory exam: PRESENT: clear to auscultation nate. ABSENT: rales, rhonchi, wheezes Cardiovascular exam: PRESENT: RRR. ABSENT: diastolic murmur, rubs, systolic murmur Pulses: PRESENT: normal dorsalis pedis pul Vascular exam: PRESENT: normal capillary refill GI/Abdominal exam: PRESENT: normal bowel sounds, soft. ABSENT: distended, guarding, mass, organolmegaly, rebound, tenderness Rectal exam: PRESENT: deferred Extremities exam: PRESENT: full ROM. ABSENT: calf tenderness, clubbing, pedal edema Neurological exam: PRESENT: alert, awake, oriented to person, oriented to place , oriented to time, oriented to situation, CN II-XII grossly intact. ABSENT: motor sensory deficit Psychiatric exam: PRESENT: appropriate affect, normal mood. ABSENT: homicidal ideation, suicidal ideation Skin exam: PRESENT: dry, intact, warm. ABSENT: cyanosis, rash Results Impressions: Chest X-Ray 08/12/18 23:09 IMPRESSION: No acute cardiopulmonary abnormality. Head CT 08/12/18 23:09 IMPRESSION: No acute intracranial abnormality. Assessment & Plan - Diagnosis (1) Bradycardia Is this a current diagnosis for this admission?: Yes Plan: History of Coreg use with bradycardia, no distress. Patient possibly still taking. Atropine as needed, follow-up orthostatic vitals. (2) Syncopal episodes Qualifiers: Syncope type: unspecified Qualified Code(s): R55 - Syncope and collapse Is this a current diagnosis for this admission?: Yes Plan: Likely secondary to #1, no chest pain, shortness of breath, follow-up orthostatic vitals and telemetry. (3) Slurred speech Is this a current diagnosis for this admission?: Yes Plan: Suspect surreptitious opiates. Supportive care (4) Diabetes Is this a current diagnosis for this admission?: Yes Plan: Hold metformin, Humalog sliding scale - Time Time Spent: 50 to 70 Minutes - Inpatient Certification Medical Necessity: Need Close Monitoring Due to Risk of Patient Decompensation
[2018-08-13] MEDS: HEPARIN SOD (PORCINE) 5,000 UNIT/ML 1 ML SYRINGE SUBCUT SCH ×3 (06:38→21:28)
[2018-08-13 06:54] LABS: CREATINE KINASE MB 0.52 ng/mL (<4.55)
[2018-08-13 06:57] LABS: TROPONIN I < 0.012 ng/mL
[2018-08-13] MEDS: IPRATROPIUM/ALBUTEROL 0.5-2.5 MG/3 ML AMPUL NEB SCH ×3 (08:19→20:25)
[2018-08-13] MEDS: LEVOFLOXACIN 750 MG/D5W RTU 750 MG/150 ML RTUPB IV SCH (09:32)
[2018-08-13] MEDS: ASPIRIN 81 MG TABLET, CHEWABLE PO SCH (09:33)
[2018-08-13] MEDS: DOCUSATE SODIUM 100 MG CAPSULE PO SCH ×2 (09:33→09:42)
[2018-08-13] MEDS: FLUTICASONE NASAL SPRAY 50 MCG/SPRY 120 SPRAY/16 GM NASL SCH ×2 (09:33→21:28)
--- NOTE | 2018-08-13 10:03 | EKG REPORT ---
SEVERITY:- ABNORMAL ECG - SINUS RHYTHM NONSPECIFIC T ABNORMALITIES, INFERIOR LEADS : Confirmed by: Itzel Mitchell 13-Aug-2018 10:02:57
[2018-08-13 12:46] LABS: TROPONIN I < 0.012 ng/mL
--- NOTE | 2018-08-13 14:32 | PDOC PROGRESS REPORT ---
Subjective Progress Note for:: 08/13/18 Subjective:: CATALINO STILL is a 63 year old female with a past medical history of depression, dyslipidemia, gastric bypass 2 years ago, hypertension, bradycardia , diabetes and recent pneumonia on Levaquin. She presents via ambulance for complaints uncontrolled hyperglycemia and fainting. EMS reports a episode of bradycardia while vomiting gastric content. In the emergency room she is found to have opiate positive urine drug screen, bradycardia in the 50s, slurred speech and a ady sez faire affect denying opiate use. Her at bedside complains of excessive medications not brought to the emergency room for reconciliation. She receives supportive care and referred to the hospitalist for admission. She admits previous episode 8 months ago and was instructed to discontinue Coreg. She is unable to recall if currently taking Coreg Patient has some mild bradycardia in the low 50s to low 60s. Reviewed patient' s medication she brought in a bag. A number of them are the pills loaded in her pillbox were verified and are the ones that are on her handwritten list. There are other medications at home the is to bring in but he has not yet done so. She did appears to be somewhat of a pill hoarder Reason For Visit: SYNCOPE Physical Exam Vital Signs: Temp Pulse Resp BP Pulse Ox 98.2 F 78 20 141/65 H 90 L 08/13/18 08:35 08/13/18 08:35 08/13/18 08:35 08/13/18 08:35 08/13/18 08:35 Intake & Output 08/12/18 08/13/18 08/14/18 06:59 06:59 06:59 Intake Total 50 150 Output Total 0 Balance 50 150 Weight 79.3 kg General appearance: PRESENT: no acute distress, well-developed, well-nourished Head exam: PRESENT: atraumatic, normocephalic Eye exam: PRESENT: conjunctiva pink, EOMI, PERRLA. ABSENT: scleral icterus Neck exam: ABSENT: carotid bruit, JVD, lymphadenopathy, thyromegaly Respiratory exam: PRESENT: clear to auscultation nate. ABSENT: rales, rhonchi, wheezes Cardiovascular exam: PRESENT: bradycardia, RRR. ABSENT: diastolic murmur, rubs , systolic murmur GI/Abdominal exam: PRESENT: normal bowel sounds, soft. ABSENT: distended, guarding, mass, organolmegaly, rebound, tenderness Extremities exam: PRESENT: full ROM. ABSENT: calf tenderness, clubbing, pedal edema Results Laboratory Results: 08/13/18 08/13/18 08/13/18 05:35 05:35 11:39 Creatine Kinase 37 33 CK-MB (CK-2) 0.52 Troponin I < 0.012 08/13/18 11:39 Creatine Kinase CK-MB (CK-2) 0.40 Troponin I < 0.012 Impressions: Chest X-Ray 08/12/18 23:09 IMPRESSION: No acute cardiopulmonary abnormality. Head CT 08/12/18 23:09 IMPRESSION: No acute intracranial abnormality. Assessment & Plan - Diagnosis (1) Orthostatic hypotension Is this a current diagnosis for this admission?: Yes Plan: Unclear if patient has taken other medication she was unclear and could not remember she took extra Coreg. Will monitor on telemetry heart rate has been climbing throughout the day. Anticipate discharge in 24 hours (2) Bradycardia Is this a current diagnosis for this admission?: Yes Plan: Heart rate in the 40s now in the 60s. Hold Coreg may not resume on discharge. (3) Hypothyroidism Is this a current diagnosis for this admission?: Yes Plan: Resume Synthroid TSH 9.8 check free T4 free T3 adjust as indicated. 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 Patient on metformin XL but takes 1500 mg at one time. Will spread dose 500 with each meal. Hemoglobin A1c in the sevens will not decrease dose - Time Time Spent with patient: 25-34 minutes
[2018-08-13 15:33] LABS: FREE T3 3.78 pg/mL (2.77-5.27); FREE T4 (FREE THYROXINE) 1.25 ng/dL (0.78-2.19)
[2018-08-13] MEDS: METFORMIN HCL 500 MG TABLET PO SCH (17:17)
[2018-08-13] MEDS: GLIMEPIRIDE 1 MG TABLET PO SCH (17:18)
[2018-08-13] MEDS ORDERED: SIMVASTATIN 40 MG TABLET PO SCH (22:00)
[2018-08-14] MEDS: IPRATROPIUM/ALBUTEROL 0.5-2.5 MG/3 ML AMPUL NEB SCH ×2 (02:31→07:44)
[2018-08-14] MEDS: HEPARIN SOD (PORCINE) 5,000 UNIT/ML 1 ML SYRINGE SUBCUT SCH (05:05)
[2018-08-14] MEDS: DOCUSATE SODIUM 100 MG CAPSULE PO SCH (09:17)
[2018-08-14] MEDS: GLIMEPIRIDE 1 MG TABLET PO SCH (09:17)
[2018-08-14] MEDS: ASPIRIN 81 MG TABLET, CHEWABLE PO SCH (09:17)
[2018-08-14] MEDS: METFORMIN HCL 500 MG TABLET PO SCH (09:18)
[2018-08-14] MEDS: LEVOFLOXACIN 750 MG/D5W RTU 750 MG/150 ML RTUPB IV SCH (09:18)
[2018-08-14] MEDS: FLUTICASONE NASAL SPRAY 50 MCG/SPRY 120 SPRAY/16 GM NASL SCH (09:18)
[2018-08-14 09:31] VITALS: BP 125/56
--- NOTE | 2018-08-14 09:56 | PDOC DISCHARGE SUMMARY ---
General - Admit/Disc Date/PCP Admission Date/Primary Care Provider: 08/13/18 02:31 Discharge Date: 08/14/18 - Discharge Diagnosis (1) Orthostatic hypotension Is this a current diagnosis for this admission?: Yes Summary: Coreg discontinued. Patient was having nausea and vomiting may have been attributed to the single dose of metformin at 1500 mg tolerated metformin at 500 mg 3 times daily. (2) Bradycardia Is this a current diagnosis for this admission?: Yes Summary: Heart rate in the low 40s at the time of admission improved with stopping the beta-celsa (3) Hyperlipidemia Is this a current diagnosis for this admission?: Yes (4) Diabetes Is this a current diagnosis for this admission?: Yes Summary: Hemoglobin A1c 7.6. Metformin changed from 1500 mg had dinner to 500 mg 3 times daily with meals to alleviate some of patient's gastric discomfort. (5) Abnormal TSH Is this a current diagnosis for this admission?: Yes Summary: TSH 9.8, free T4 1.25, free T3 3.78. Recommended follow-up TSH in 3-6 weeks - Additional Information Resuscitation Status: Full Code Discharge Diet: As Tolerated, Cardiac, Diabetic Discharge Activity: Activity As Tolerated Home Medications: Aspirin [Aspirin 81 mg Chewable Tablet] 81 mg PO DAILY 08/13/18 Cholecalciferol (Vitamin D3) [Vitamin D3 2000 unit Tablet] 2,000 units PO DAILY 08/13/18 Escitalopram Oxalate 20 mg PO DAILY 08/13/18 Glimepiride 1 mg PO BID 08/13/18 Multivitamin [Tab-A-Greta] 1 each PO DAILY 08/13/18 Simvastatin 40 mg PO DAILY 08/13/18 Metformin HCl [Metformin HCl ER] 500 mg PO TID #0 08/14/18 History of Present Illness History of Present Illness: CATALINO STILL is a 63 year old female with a past medical history of depression, dyslipidemia, gastric bypass 2 years ago, hypertension, bradycardia , diabetes and recent pneumonia on Levaquin. She presents via ambulance for complaints uncontrolled hyperglycemia and fainting. EMS reports a episode of bradycardia while vomiting gastric content. In the emergency room she is found to have opiate positive urine drug screen, bradycardia in the 50s, slurred speech and a ady sez faire affect denying opiate use. Her at bedside complains of excessive medications not brought to the emergency room for reconciliation. Hospital Course Hospital Course: Patient was admitted to a telemetry bed. Given IV hydration her medications were reviewed. The medications and her pill box were confirmed as the one she actually takes. Patient had a number of medications in a bag and at home. The medications were discarded and the patient and were counseled that medication she is not taking should be discarded. With hydration and stopping of the Coreg patient's heart rate increased and the orthostasis resolved. Patient was taking 1500 mg of extended release Metformin at dinnertime and was having nausea and vomiting as a result. The medication was distributed over the 3 meals a day patient had reasonable glycemic control and minimal to no GI side effects. Patient's TSH was elevated at 9.8. Free T4 and free T3 were in the normal range however it is recommended she have follow- up thyroid studies in 3-6 weeks. Physical Exam Vital Signs: Temp Pulse Resp BP Pulse Ox 98.2 F 64 22 H 125/56 L 96 08/14/18 08:11 08/14/18 08:11 08/14/18 08:11 08/14/18 08:11 08/14/18 08:11 Intake & Output 08/13/18 08/14/18 08/15/18 06:59 06:59 06:59 Intake Total 50 1021 Output Total 0 1900 Balance 50 -879 Weight 79.3 kg 80.9 kg General appearance: PRESENT: no acute distress, well-developed, well-nourished Eye exam: PRESENT: conjunctiva pink, EOMI, PERRLA. ABSENT: scleral icterus Neck exam: ABSENT: carotid bruit, JVD, lymphadenopathy, thyromegaly Respiratory exam: PRESENT: clear to auscultation nate. ABSENT: rales, rhonchi, wheezes Cardiovascular exam: PRESENT: RRR. ABSENT: diastolic murmur, rubs, systolic murmur Pulses: PRESENT: normal dorsalis pedis pul GI/Abdominal exam: PRESENT: normal bowel sounds, soft. ABSENT: distended, guarding, mass, organolmegaly, rebound, tenderness Extremities exam: PRESENT: full ROM. ABSENT: calf tenderness, clubbing, pedal edema Neurological exam: PRESENT: alert, awake, oriented to person, oriented to place , oriented to time, oriented to situation, CN II-XII grossly intact. ABSENT: motor sensory deficit Psychiatric exam: PRESENT: appropriate affect, normal mood. ABSENT: homicidal ideation, suicidal ideation Skin exam: PRESENT: dry, intact, warm. ABSENT: cyanosis, rash Results Laboratory Results: 08/13/18 11:39 Free T4 1.25 Free T3 pg/mL 3.78 08/13/18 08/13/18 08/13/18 05:35 05:35 11:39 Creatine Kinase 37 33 CK-MB (CK-2) 0.52 Troponin I < 0.012 08/13/18 11:39 Creatine Kinase CK-MB (CK-2) 0.40 Troponin I < 0.012 Impressions: Chest X-Ray 08/12/18 23:09 IMPRESSION: No acute cardiopulmonary abnormality. Head CT 08/12/18 23:09 IMPRESSION: No acute intracranial abnormality. Qualifiers - * PATIENT BEING DISCHARGED WITH ANY OF THE FOLLOWING DIAGNOSIS: No Plan Time Spent: Greater than 30 Minutes
[2018-08-14] MEDS ORDERED: (PENDING PHARMACY ID) (Escitalopram Oxalate [Escitalopram Oxalate] 20 MG) PO SCH (10:00)
[2018-08-14] MEDS ORDERED: SIMVASTATIN 40 MG TABLET PO SCH (10:00)
[2018-08-14] MEDS ORDERED: ASPIRIN 81 MG TABLET, CHEWABLE PO SCH (10:00)
[2018-08-14] MEDS ORDERED: ESCITALOPRAM OXALATE 10 MG TABLET PO SCH (10:00)
== END 2018-08-14 10:45 | disposition home or self-care (01) ==
LOC: ER 22:55 → EH 08-13 02:31 → 4N 08-13 04:33
PROVIDERS: ADMIT Internal Medicine; ATTEND Internal Medicine
DX: I95.1 Orthostatic hypotension (principal); R11.2 Nausea with vomiting, unspecified; R00.1 Bradycardia, unspecified; E78.5 Hyperlipidemia, unspecified; E11.9 Type 2 diabetes mellitus without complications; R94.6 Abnormal results of thyroid function studies; F32.9 Major depressive disorder, single episode, unspecified; R78.1 Finding of opiate drug in blood; R47.81 Slurred speech; R40.0 Somnolence; E03.9 Hypothyroidism, unspecified; S01.552A Open bite of oral cavity, initial encounter; X58.XXXA Exposure to other specified factors, initial encounter; Z79.82 Long term (current) use of aspirin; Z79.899 Other long term (current) drug therapy; Z79.84 Long term (current) use of oral hypoglycemic drugs; Z98.84 Bariatric surgery status; Z90.49 Acquired absence of other specified parts of digestive tract; Z98.890 Other specified postprocedural states; Z98.51 Tubal ligation status; Z80.7 Family history of other malignant neoplasms of lymphoid, hematopoietic and related tissues; Z82.49 Family history of ischemic heart disease and other diseases of the circulatory system
CPT/HCPCS: 93005; 99285; 36415 ×3; 84439; 82553; 82962 ×2; 82550; 84443; 85025; 80053; 81001; 84484 ×2; 80307; 84481; 83036 ×2; 71045; 70450; 93010; 94640 ×3; G0378 ×3; A9270 ×13; J1644 ×2; J1956; J7620

== ENCOUNTER → 2018-09-06 | Outpatient (CLI) | payer MEDICARE, OTHER ==
--- NOTE | 2018-09-06 16:36 | XCELERA REPORT ---
[address] [address] Transthoracic Echocardiogram Report Name: CATALINO STILL Age: 63 yrs Gender: Female : 1955 Patient Status: Outpatient Patient Location: Study Date: 09/06/2018 02:27 PM Height: 63 in Weight: 180 lb BSA: 1.8 m2 Procedure: A two-dimensional transthoracic echocardiogram with color flow and Doppler was performed. Study Quality: Fair. Reason For Study: SYNCOPE History: SYNCOPE. Ordering Physician: JESSICA ALEX Performed By: Jaclyn Epps Interpretation Summary The left ventricle is normal in size. There is normal left ventricular wall thickness. LV EF is > than 65% Left ventricular systolic function is normal. Doppler measurements suggest impaired left ventricular relaxation, which is associated with grade I/IV or mild diastolic dysfunction The left ventricular wall motion is normal. There is no thrombus. There is no ventricular septal defect visualized. The right ventricle is grossly normal size. The right ventricle is not well visualized secondary to technical limitations The right atrium is normal. The left atrium is mildly dilated. The interatrial septum is intact with no evidence for an atrial septal defect. There is no evidence of mitral valve prolapse. There is no vegetation seen on the mitral valve. There is no mitral valve stenosis. There is a mild amount of mitral regurgitation There is no LVOT obstruction. There is a mild amount of aortic regurgitation There is no tricuspid stenosis. There is a mild amount of tricuspid regurgitation Right ventricular systolic pressure is at the upper limits of normal There is no pulmonic valvular stenosis. There is a trace amount of pulmonic regurgitation RVSP is 30 mm of Hg , with RA mean of 5. There is no pericardial effusion. MMode/2D Measurements & Calculations RVDd: 3.4 cm LVIDd: 4.9 cm FS: 41.6 % Ao root diam: 2.7 cm IVSd: 1.1 cm LVIDs: 2.9 cm EDV(Teich): 113.0 ml Ao root area: 5.8 cm2 LVPWd: 1.1 cm ESV(Teich): 31.2 ml LA dimension: 4.2 cm EF(Teich): 72.4 % Doppler Measurements & Calculations MV E max lui: MV P1/2t max lui: Ao V2 max: AI max lui: 71.1 cm/sec 71.1 cm/sec 118.9 cm/sec 365.0 cm/sec MV A max lui: MV P1/2t: 74.3 msec Ao max PG: AI max P.0 cm/sec MVA(P1/2t): 3.0 cm2 5.7 mmHg 53.3 mmHg MV E/A: 0.92 MV dec slope: AI dec slope: 158.7 cm/sec2 280.4 cm/sec2 AI P1/2t: MV dec time: 673.5 msec 0.25 sec LV V1 max PG: PA V2 max: PI end-d lui: TR max lui: 3.9 mmHg 81.9 cm/sec 126.2 cm/sec 249.8 cm/sec LV V1 max: PA max P.7 mmHg TR max P.2 cm/sec 25.0 mmHg AV P1/2t-pr_phl: MV P1/2t-pr_phl: 673.5 msec 74.3 msec Left Ventricle The left ventricle is normal in size. There is normal left ventricular wall thickness. LV EF is > than 65%. Left ventricular systolic function is normal. Doppler measurements suggest impaired left ventricular relaxation, which is associated with grade I/IV or mild diastolic dysfunction. The left ventricular wall motion is normal. There is no thrombus. There is no ventricular septal defect visualized. Right Ventricle The right ventricle is grossly normal size. The right ventricle is not well visualized secondary to technical limitations. Atria The right atrium is normal. The left atrium is mildly dilated. The interatrial septum is intact with no evidence for an atrial septal defect. Mitral Valve There is no evidence of mitral valve prolapse. There is no vegetation seen on the mitral valve. There is no mitral valve stenosis. There is a mild amount of mitral regurgitation. Aortic Valve There is no aortic valvular vegetation. There is no aortic valve stenosis. There is no LVOT obstruction. There is a mild amount of aortic regurgitation. Tricuspid Valve There is no tricuspid stenosis. There is a mild amount of tricuspid regurgitation. RVSP is 30 mm of Hg , with RA mean of 5. Right ventricular systolic pressure is at the upper limits of normal. Pulmonic Valve There is no pulmonic valvular stenosis. There is a trace amount of pulmonic regurgitation. Great Vessels The aortic root is normal size. The inferior vena cava appeared small and collapsed with respiration (RAP 0-5 mmHg). Effusions There is no pericardial effusion. : JESSICA ALEX > Jorge, Shreya
== END ==
LOC: SP 14:11
PROVIDERS: ATTEND Specialist
DX: R55 Syncope and collapse (principal)
CPT/HCPCS: 93306